=== PATIENT | male | born 1950 | race Caucasian/White ===

== ENCOUNTER 2023-04-02 13:45 | Emergency (ER) | payer OTHER ==
[~2023-04-02] VITALS: Ht 177.8 cm; Wt 63.5 kg
[2023-04-02 14:55] LABS: BASO # 0.1 10*3/uL (0.0-0.1); BASO % 0.5 % (0.0-1.0); EOS % 0.1 % (1.0-4.0); HEMATOCRIT 34.4 % (42.0-52.0); LYMPH # 0.5 10*3/uL (1.3-4.4); LYMPH % 4.9 % (27.0-41.0); MEAN CELL VOLUME 87.5 fl (80.0-94.0); MEAN CORPUSCULAR HGB 28.5 pg (27.0-31.0); MEAN CORPUSCULAR HGB CONC 32.6 g/dl (33.0-37.0); MONO # 0.6 10*3/uL (0.1-1.0); MONO % 6.6 % (3.0-9.0); NEUT # 8.3 10*3/uL (2.3-7.9); NEUT % 87.6 % (47.0-73.0); PLATELET COUNT AUTOMATED 191 10*3/uL (130-400); RED BLOOD COUNT 3.93 10*6/uL (4.50-5.90); RED CELL DISTRI WIDTH 15.4 % (0-14.5); WHITE BLOOD COUNT 9.5 10*3/uL (4.8-10.8)
[2023-04-02 15:14] LABS: ALKALINE PHOSPHATASE 71 U/L (46-116); BUN 21 mg/dl (9-23); CHLORIDE 106 mmol/L (98-107); POTASSIUM 4.2 mmol/L (3.4-5.1); SGPT/ALT 64 U/L (10-49); TOTAL PROTEIN 6.5 gm/dL (6.0-8.0)
[2023-04-02 15:31] LABS: ETHYL ALCOHOL < 3.0 mg/dl (<3)
[2023-04-02 16:41] LABS: BILIRUBIN Negative (Negative); BLOOD 2+ (Negative); CLARITY Clear (Clear); COLOR Yellow (Yellow); GLUCOSE Negative (Negative); KETONE Trace (Negative); LEUKO ESTERASE Negative (Negative); NITRITE Negative (Negative); SPECIFIC GRAVITY 1.015 (1.001-1.030)
[2023-04-02] MEDS ORDERED: AMLODIPINE BESY10 MG PO (16:41)
[2023-04-02] MEDS ORDERED: DONEPEZIL HYDROC5 MG PO (16:41)
[2023-04-02] MEDS ORDERED: B-12500 MC1 PO (16:42)
[2023-04-02] MEDS ORDERED: COZAAR50 M1 PO (16:42)
[2023-04-02] MEDS ORDERED: HORIZANT300 M1 PO (16:44)
[2023-04-02] MEDS ORDERED: ELIQUIS5 M1 PO (16:44)
[2023-04-02] MEDS ORDERED: NAMENDA10 MG PO (16:45)
[2023-04-02] MEDS ORDERED: LIPITOR40 MG PO (16:45)
[2023-04-02] MEDS ORDERED: LEVOXYL75 MCG PO (16:45)
[2023-04-02 16:48] LABS: URINE AMPHETAMINES Negative (1000ng/ml); URINE BARBITURATES Negative (200ng/ml); URINE BENZODIAZEPINES Negative (200ng/ml); URINE CANNABINOIDS (THC) Negative (50ng/ml); URINE COCAINE Negative (300ng/ml); URINE METHADONE Negative (300ng/ml); URINE OPIATES Negative (300ng/ml); URINE PHENCYCLIDINE Negative (25ng/ml)
[2023-04-02] MEDS ORDERED: RISPERDAL0.5 MG PO (16:52)
[2023-04-02] MEDS ORDERED: PROTONIX40 MG PO (21:14)
[2023-04-02] MEDS ORDERED: VIMPAT100 MG PO (21:14)
[2023-04-02] MEDS ORDERED: HALOPERIDOL5 MG/1 M1 IM (21:31)
[2023-04-02] MEDS ORDERED: HALOPERIDOL5 MG PO (21:33)
[2023-04-03] MEDS ORDERED: DEPAKOTE SPRIN125 MG PO (02:34)
== END 2023-04-02 17:59 | disposition admitted as inpatient to this hospital (09) ==
LOC: ED 13:45
PROVIDERS: Family Medicine
DX: F23 Brief psychotic disorder (principal); F03.90 Unspecified dementia, unspecified severity, without behavioral disturbance, psychotic disturbance, mood disturbance, and anxiety; Z79.899 Other long term (current) drug therapy; Z20.822 Contact with and (suspected) exposure to COVID-19

== ENCOUNTER 2023-04-02 18:06 | Inpatient (IN) | payer OTHER ==
[~2023-04-02] VITALS: Wt 69.9 kg
[~2023-04-02 18:06] MED LIST: AMLODIPINE BESY10 MG PO; B-12500 MC1 PO; COZAAR50 M1 PO; DONEPEZIL HYDROC5 MG PO; ELIQUIS5 M1 PO; HORIZANT300 M1 PO; LEVOXYL75 MCG PO; LIPITOR40 MG PO; NAMENDA10 MG PO; RISPERDAL0.5 MG PO
[2023-04-02] MEDS ORDERED: PROTONIX40 MG PO (21:14)
[2023-04-02] MEDS ORDERED: VIMPAT100 MG PO (21:14)
[2023-04-02] MEDS ORDERED: HALOPERIDOL5 MG/1 M1 IM (21:31)
[2023-04-02] MEDS ORDERED: HALOPERIDOL5 MG PO (21:33)
[2023-04-02 22:55] VITALS: BP 149/87
[2023-04-03] MEDS ORDERED: DEPAKOTE SPRIN125 MG PO (02:34)
[2023-04-03 08:00] VITALS: BP 133/73
[2023-04-03 08:48] LABS: BASO # 0.1 10*3/uL (0.0-0.1); BASO % 1.3 % (0.0-1.0); EOS # 0.1 10*3/uL (0.0-0.4); EOS % 0.9 % (1.0-4.0); HEMATOCRIT 34.8 % (42.0-52.0); LYMPH # 0.8 10*3/uL (1.3-4.4); LYMPH % 10.8 % (27.0-41.0); MEAN CELL VOLUME 87.4 fl (80.0-94.0); MEAN CORPUSCULAR HGB 28.9 pg (27.0-31.0); MEAN PLATELET VOLUME 10.4 fl (9.6-12.3); MONO # 0.5 10*3/uL (0.1-1.0); MONO % 7.4 % (3.0-9.0); NEUT # 5.6 10*3/uL (2.3-7.9); NEUT % 79.3 % (47.0-73.0); PLATELET COUNT AUTOMATED 178 10*3/uL (130-400); RED BLOOD COUNT 3.98 10*6/uL (4.50-5.90); RED CELL DISTRI WIDTH 15.8 % (0-14.5); WHITE BLOOD COUNT 7.1 10*3/uL (4.8-10.8)
[2023-04-03 09:18] LABS: POTASSIUM 3.8 mmol/L (3.4-5.1); THYROID STIM HORMONE (HS) 0.936 uIU/ml (0.550-4.780); TOTAL PROTEIN 6.3 gm/dL (6.0-8.0)
[2023-04-03 10:18] LABS: VITAMIN D, 25-HYDROXY 20.9 ng/mL (30-100)
[2023-04-03 20:00] VITALS: BP 120/60
[2023-04-04 06:52] LABS: POTASSIUM 3.6 mmol/L (3.4-5.1)
[2023-04-04 07:45] VITALS: BP 109/59
[2023-04-04 20:00] VITALS: BP 90/59
[2023-04-05 07:40] VITALS: BP 128/64
[2023-04-05 07:41] LABS: BASO % 0.4 % (0.0-1.0); EOS % 0.3 % (1.0-4.0); HEMATOCRIT 35.3 % (42.0-52.0); LYMPH # 0.6 10*3/uL (1.3-4.4); MEAN CELL VOLUME 87.8 fl (80.0-94.0); MEAN CORPUSCULAR HGB 28.6 pg (27.0-31.0); MEAN CORPUSCULAR HGB CONC 32.6 g/dl (33.0-37.0); MEAN PLATELET VOLUME 10.3 fl (9.6-12.3); MONO # 0.7 10*3/uL (0.1-1.0); MONO % 8.6 % (3.0-9.0); NEUT # 6.5 10*3/uL (2.3-7.9); NEUT % 82.4 % (47.0-73.0); PLATELET COUNT AUTOMATED 203 10*3/uL (130-400); RED BLOOD COUNT 4.02 10*6/uL (4.50-5.90); RED CELL DISTRI WIDTH 15.8 % (0-14.5); WHITE BLOOD COUNT 7.9 10*3/uL (4.8-10.8)
[2023-04-05 07:56] LABS: POTASSIUM 3.7 mmol/L (3.4-5.1)
[2023-04-05 20:00] VITALS: BP 139/72
[2023-04-06 07:43] VITALS: BP 142/75
[2023-04-07 07:28] VITALS: BP 137/59
[2023-04-07 20:00] VITALS: BP 146/72
[2023-04-08 20:00] VITALS: BP 158/72
[2023-04-09 07:31] VITALS: BP 168/88
[2023-04-09 08:46] LABS: BILIRUBIN Negative (Negative); BLOOD Negative (Negative); CLARITY Clear (Clear); COLOR Yellow (Yellow); GLUCOSE Negative (Negative); KETONE Negative (Negative); LEUKO ESTERASE Trace (Negative); NITRITE Negative (Negative)
[2023-04-09 08:57] LABS: BACTERIA TRACE; EPITHELIAL CELLS 0-2
[2023-04-09 20:00] VITALS: BP 152/76
[2023-04-10 07:27] VITALS: BP 152/75
[2023-04-10 18:48] LABS: BASO # 0.1 10*3/uL (0.0-0.1); BASO % 1.3 % (0.0-1.0); EOS # 0.2 10*3/uL (0.0-0.4); EOS % 3.9 % (1.0-4.0); HEMATOCRIT 34.6 % (42.0-52.0); LYMPH # 0.9 10*3/uL (1.3-4.4); LYMPH % 14.8 % (27.0-41.0); MEAN CELL VOLUME 88.7 fl (80.0-94.0); MEAN CORPUSCULAR HGB 29.5 pg (27.0-31.0); MEAN CORPUSCULAR HGB CONC 33.2 g/dl (33.0-37.0); MEAN PLATELET VOLUME 9.2 fl (9.6-12.3); MONO # 0.4 10*3/uL (0.1-1.0); MONO % 6.7 % (3.0-9.0); NEUT # 4.4 10*3/uL (2.3-7.9); NEUT % 73.1 % (47.0-73.0); PLATELET COUNT AUTOMATED 324 10*3/uL (130-400)
[2023-04-10 19:17] LABS: ALKALINE PHOSPHATASE 76 U/L (46-116); BUN 11 mg/dl (9-23); CHLORIDE 108 mmol/L (98-107); POTASSIUM 3.7 mmol/L (3.4-5.1); SGPT/ALT 49 U/L (10-49); TOTAL PROTEIN 6.4 gm/dL (6.0-8.0)
[2023-04-10 20:32] VITALS: BP 167/86
[2023-04-11 07:47] VITALS: BP 147/83
[2023-04-11 16:56] LABS: BILIRUBIN Negative (Negative); BLOOD Negative (Negative); CLARITY Clear (Clear); COLOR Yellow (Yellow); GLUCOSE Negative (Negative); KETONE Negative (Negative); LEUKO ESTERASE Negative (Negative); NITRITE Negative (Negative); PH 7.5 (4.5-8.0)
[2023-04-11 17:07] LABS: RBC 0-2 rbc/hpf (0-2)
[2023-04-11 20:00] VITALS: BP 167/75
[2023-04-12 08:00] VITALS: BP 137/83
[2023-04-12 20:00] VITALS: BP 140/74
[2023-04-13 07:30] VITALS: BP 141/76
[2023-04-13 20:00] VITALS: BP 124/68
[2023-04-14 07:35] VITALS: BP 138/76
[2023-04-14] MEDS ORDERED: MEMANTINE HCL10 MG PO (08:29)
[2023-04-14] MEDS ORDERED: RIVASTIGMINE1 EAC2 T (08:29)
[2023-04-14] MEDS ORDERED: MIRTAZAPINE15 M2 PO (08:29)
[2023-04-14] MEDS ORDERED: QUETIAPINE FUM100 M3 PO (08:29)
[2023-04-14] MEDS ORDERED: VITAMIN D350 MCG PO (09:17)
[2023-04-14 20:00] VITALS: BP 127/69
[2023-04-15 08:00] VITALS: BP 135/89
[2023-04-16 08:13] VITALS: BP 135/77
[2023-04-16 20:30] VITALS: BP 153/72
[2023-04-17 07:47] VITALS: BP 123/74
[2023-04-17 19:33] VITALS: BP 139/63
[2023-04-18 07:45] VITALS: BP 127/73
[2023-04-18 20:00] VITALS: BP 132/65
[2023-04-19 07:27] VITALS: BP 141/86
[2023-04-19 13:21] LABS: BILIRUBIN Negative (Negative); BLOOD Negative (Negative); CLARITY Clear (Clear); COLOR Yellow (Yellow); GLUCOSE Negative (Negative); KETONE Negative (Negative); LEUKO ESTERASE Negative (Negative); NITRITE Negative (Negative); PH 7.5 (4.5-8.0); UROBILINOGEN 0.2 E.U./dl (0.0-1.0)
[2023-04-19 13:30] LABS: BACTERIA TRACE; EPITHELIAL CELLS 0-2
[2023-04-19 20:00] VITALS: BP 129/56
[2023-04-20 08:00] VITALS: BP 140/70
[2023-04-20 20:00] VITALS: BP 149/69
[2023-04-21 08:00] VITALS: BP 130/87
== END 2023-04-21 11:50 | DRG 883 ==
LOC: 3N 18:06
PROVIDERS: Family Medicine; Nurse Practitioner Women's Health; Occupational Therapist; Student in an Organized Health Care Education/Training Program; ADMIT Psychiatry & Neurology Psychiatry; ATTEND Psychiatry & Neurology Psychiatry
DX: F63.81 Intermittent explosive disorder (principal); N17.0 Acute kidney failure with tubular necrosis; N18.30 Chronic kidney disease, stage 3 unspecified; I26.99 Other pulmonary embolism without acute cor pulmonale; F23 Brief psychotic disorder; F02.818 Dementia in other diseases classified elsewhere, unspecified severity, with other behavioral disturbance; F33.3 Major depressive disorder, recurrent, severe with psychotic symptoms; G30.9 Alzheimer's disease, unspecified; D64.9 Anemia, unspecified; K21.9 Gastro-esophageal reflux disease without esophagitis; G62.9 Polyneuropathy, unspecified; R74.01 Elevation of levels of liver transaminase levels; R31.9 Hematuria, unspecified; E03.9 Hypothyroidism, unspecified; N40.0 Benign prostatic hyperplasia without lower urinary tract symptoms; I12.9 Hypertensive chronic kidney disease with stage 1 through stage 4 chronic kidney disease, or unspecified chronic kidney disease; X58.XXXA Exposure to other specified factors, initial encounter; F41.9 Anxiety disorder, unspecified; G31.83 Neurocognitive disorder with Lewy bodies; S91.301A Unspecified open wound, right foot, initial encounter; Z86.711 Personal history of pulmonary embolism; Z82.49 Family history of ischemic heart disease and other diseases of the circulatory system; Z80.42 Family history of malignant neoplasm of prostate; Y93.89 Activity, other specified; Y92.89 Other specified places as the place of occurrence of the external cause; Y99.8 Other external cause status

== ENCOUNTER → 2023-04-25 | Emergency (ER) | payer OTHER ==
[~2023-04-25] MED LIST changes: +DEPAKOTE SPRIN125 MG PO; +HALOPERIDOL5 MG PO; +HALOPERIDOL5 MG/1 M1 IM; +MEMANTINE HCL10 MG PO; +MIRTAZAPINE15 M2 PO; +PROTONIX40 MG PO; +QUETIAPINE FUM100 M3 PO; +RIVASTIGMINE1 EAC2 T; +VIMPAT100 MG PO; +VITAMIN D350 MCG PO
[2023-04-25 13:06] LABS: URINE AMPHETAMINES Negative (1000ng/ml); URINE BARBITURATES Negative (200ng/ml); URINE BENZODIAZEPINES Negative (200ng/ml); URINE CANNABINOIDS (THC) Negative (50ng/ml); URINE COCAINE Negative (300ng/ml); URINE METHADONE Negative (300ng/ml); URINE OPIATES Negative (300ng/ml); URINE PHENCYCLIDINE Negative (25ng/ml)
[2023-04-25 13:06] LABS: BASO % 0.8 % (0.0-1.0); EOS # 0.1 10*3/uL (0.0-0.4); EOS % 2.3 % (1.0-4.0); HEMATOCRIT 35.4 % (42.0-52.0); LYMPH # 0.8 10*3/uL (1.3-4.4); LYMPH % 15.2 % (27.0-41.0); MEAN CELL VOLUME 90.5 fl (80.0-94.0); MEAN CORPUSCULAR HGB 29.2 pg (27.0-31.0); MEAN CORPUSCULAR HGB CONC 32.2 g/dl (33.0-37.0); MEAN PLATELET VOLUME 9.7 fl (9.6-12.3); MONO # 0.4 10*3/uL (0.1-1.0); MONO % 7.3 % (3.0-9.0); NEUT # 3.8 10*3/uL (2.3-7.9); PLATELET COUNT AUTOMATED 261 10*3/uL (130-400); RED BLOOD COUNT 3.91 10*6/uL (4.50-5.90); RED CELL DISTRI WIDTH 16.9 % (0-14.5); WHITE BLOOD COUNT 5.2 10*3/uL (4.8-10.8)
[2023-04-25 13:31] LABS: ALKALINE PHOSPHATASE 87 U/L (46-116); BUN 14 mg/dl (9-23); CHLORIDE 108 mmol/L (98-107); POTASSIUM 4.2 mmol/L (3.4-5.1); SGPT/ALT 129 U/L (10-49); TOTAL PROTEIN 6.6 gm/dL (6.0-8.0)
[2023-04-25 13:36] LABS: ETHYL ALCOHOL < 3.0 mg/dl (<3)
[2023-04-25 13:52] LABS: BILIRUBIN Negative (Negative); BLOOD Negative (Negative); CLARITY Clear (Clear); COLOR Yellow (Yellow); GLUCOSE Negative (Negative); KETONE Negative (Negative); LEUKO ESTERASE Trace (Negative); NITRITE Negative (Negative); PH 7.5 (4.5-8.0)
[2023-04-25 14:36] LABS: BACTERIA TRACE; EPITHELIAL CELLS 0-2; RBC 0-2 rbc/hpf (0-2)
== END ==
LOC: ED 12:20
PROVIDERS: Physician Assistant
DX: G30.9 Alzheimer's disease, unspecified (principal); Z20.822 Contact with and (suspected) exposure to COVID-19; Z79.899 Other long term (current) drug therapy